=== PATIENT | male | born 1995 | race Caucasian/White ===

== ENCOUNTER 2022-07-01 21:25 | Emergency (ER) | payer BC, MEDICAID, SELFPAY ==
[2022-07-01 21:35] VITALS: BP 137/73; PULSE 124; RESP 18; TEMP 37.9; O2SAT 98
--- NOTE | 2022-07-01 21:40 | ED_ITS ---
HPI - COVID General: Chief Complaint: Fever Stated Complaint: Fever, weakness Time Seen by Provider: 07/01/22 21:40 Triage information: Has fever, cough or shortness of breath . No known COVID + exposure last 14 days History of Present Illness: 27-year-old male patient comes in today with fever and malaise starting this morning. Patient reports his and one of his children has been ill at home also. Patient appears mildly unwell but not toxic. Patient reports use of acetaminophen last dose about 4 hours ago. Patient is needing a work note for his illness. COVID 19 common symptoms: positive fever(s) COVID Results: No Data to Display Review of Systems Const: Reports: fever(s) and malaise Physical Exam Const: COMMON NORMALS: alert HENMT: COMMON NORMALS: normocephalic HEAD & SCALP: normocephalic Resp: COMMON NORMALS: normal respiratory effort and clear to auscultation bilaterally AUSCULTATION: clear to auscultation bilaterally Cardio: COMMON NORMALS: regular rate RATE: regular rate GI: COMMON NORMALS: Soft to palpation and non-tender PALPATION: Yes Soft to palpation Extremity: COMMON NORMALS: normal to inspection Neuro: SENSORIUM/ORIENTATION: Yes alert Skin: COMMON NORMALS: no rashes or lesions noted GENERAL SKIN EXAM: no rashes or lesions noted Course Vital Signs: Vital signs: Vital Signs Temperature 100.2 F H 07/01/22 21:35 Pulse Rate 124 H 07/01/22 21:35 Respiratory Rate 18 07/01/22 21:35 Blood Pressure 137/73 07/01/22 21:35 Pulse Oximetry 98 07/01/22 21:35 Oxygen Delivery Pr thod 07/01/22 21:35 MDM - COVID Medical Decision Making Patient comes in today for complaints of fever and upper respiratory symptoms starting this morning. Patient has been around his and child who is also sick. Patient needs a work note. On exam lungs are clear to auscultation, posterior pharynx is pink and moist, bilateral TMs are normal. Vital signs are normal except for some elevation of pulse of 124, and temperature of 100.2. Differential diagnosis includes COVID-19, upper respiratory infection, dehydration. COVID-19 PCR test was sent to lab and is outstanding at discharge. Patient be placed off work for 3 days. Patient was encouraged to drink plenty of water and fluids and use acetaminophen ibuprofen for discomfort and fever. Patient appears nontoxic without any signs of severe distress respiratory or otherwise. Patient reported understanding of care plan need for follow-up or return to the ER. Lab Data No Data to Display Discharge Plan Discharge Patient Disposition: Home Clinical Impression: Viral infection Condition: Stable Discharge Orders: Discharge ED (Routine); Ordered 07/01/22 Ordered By: Saulo Pelaez Discharge Diet: Usual diet Discharge Activity: Increase activity as tolerated Patient Instructions: Viral Syndrome (ED) Activity Restrictions/Additional Instructions: Home and rest. Drink plenty of water and fluids. Use acetaminophen and ibuprofen for pain and discomfort. Follow-up with your nurse or the ER charge nurse in 3 to 4 hours for final result of COVID-19 test. Return to ER for shortness of breath, chest pain, or new concerns. Stand Alone Forms: Work/School Release Coding Level of Care Code ED [employer] for [employer] B[employer]
[2022-07-01 23:32] LABS: Adenovirus Not Detected (NOT DETECT); Chlamydia Pneumoniae Not Detected (NOT DETECT); Coronavirus 229E,HKU1,NL63,OC4 Not Detected (NOT DETECT); Human Metapneumovirus Not Detected (NOT DETECT); Human Rhinovirus/Enterovirus Not Detected (NOT DETECT); Influenza A Not Detected (NOT DETECT); Influenza A H1 Not Detected (NOT DETECT); Influenza A H1-2009 Not Detected (NOT DETECT); Influenza A H3 Not Detected (NOT DETECT); Influenza B Not Detected (NOT DETECT); Mycoplasma Pneumoniae Not Detected (NOT DETECT); Parainfluenza Virus Type 1 Not Detected (NOT DETECT); Parainfluenza Virus Type 2 Not Detected (NOT DETECT); Parainfluenza Virus Type 3 Not Detected (NOT DETECT); Parainfluenza Virus Type 4 Not Detected (NOT DETECT); Respiratory Syncytial Virus A Not Detected (NOT DETECT); Respiratory Syncytial Virus B Not Detected (NOT DETECT); SARS-COV-2 Detected (NOT DETECT)
--- NOTE | 2022-07-02 12:46 | PC.NURSE ---
Pt contacted about COVID results 2918
== END 2022-07-01 21:53 | disposition home or self-care (01) ==
PROVIDERS: Emergency Provider Nurse Practitioner Family
DX: U07.1 COVID-19 (principal)
CPT/HCPCS: 87635; 99283